=== PATIENT | male | born 1960 | race Hispanic/Latino ===

== ENCOUNTER 2021-06-02 16:55 | Emergency (ER) | payer OTHER, MEDICARE ==
[~2021-06-02] VITALS: Ht 165.1 cm; Wt 92.5 kg
[2021-06-02 17:09] VITALS: BP 155/91
[2021-06-02 17:33] LABS: BASOPHILS % (AUTO) 0.4 % (0.0-5.0); HEMATOCRIT 42.5 % (42-54); LYMPHOCYTES % (AUTO) 26.6 % (21.0-51.0); MEAN CORPUSCULAR HGB CONC 34.8 g/dL (32.0-36.0); MONOCYTES % (AUTO) 6.3 % (3.0-13.0); NEUTROPHILS % (AUTO) 65.3 % (40.0-77.0); PLATELET COUNT (AUTO) 303 K/uL (130-400); RED BLOOD CELL COUNT(AUTO) 4.94 MIL/uL (4.50-6.20); WHITE BLOOD COUNT (AUTO) 14.3 K/uL (4.8-10.8)
[2021-06-02] MEDS ORDERED: ONDANSETRON 4MG INJ ONE (17:33)
[2021-06-02] MEDS ORDERED: MORPHINE 4 MG SYG ONE (17:33)
[2021-06-02 17:54] LABS: BILIRUBIN,TOTAL 0.3 mg/dL (0.2-1.0); CREATININE 1.2 mg/dL (0.5-1.5); TOTAL PROTEIN, SERUM 7.8 g/dL (6.0-8.3)
[2021-06-02] MEDS ORDERED: ZOSYN 3.375GM+NS 50ML 3.38 GM in 0.9%NACL 50ML 50 ML IV SCH (18:00)
[2021-06-02] MEDS ORDERED: 0.9%NACL 50ML 50 ML IV ONE (18:30)
[2021-06-02] MEDS ORDERED: ZOSYN 3.375GM +NS 50ML IV ONE (18:30)
[2021-06-02 19:00] VITALS: BP 158/90
[2021-06-02 19:59] VITALS: BP 151/85
[2021-06-02 20:19] LABS: APPEARANCE,URINE Cloudy (CLEAR); BILIRUBIN,URINE Negative (NEGATIVE); COLOR,URINE Yellow (YELLOW); GLUCOSE, URINE (UA) Negative (NEGATIVE); KETONES,URINE 15 mg/dL (NEGATIVE); LEUKOCYTE ESTERASE ,URINE Small (NEGATIVE); NITRATE,URINE Negative (NEGATIVE); OCCULT BLOOD,URINE Large (NEGATIVE); PROTEIN,URINE POS 2+ mg/dL (NEGATIVE)
[2021-06-02 20:44] LABS: BACTERIA,URINE Rare /HPF (None Seen); WBC,URINE 0-1 /HPF (0-1); YEAST,URINE BUDDING Few /HPF (None Seen)
[2021-06-02 20:45] LABS: RBC,URINE 26-50 /HPF (0-1); SQUAMOUS EPITHELIAL CELL,UR Rare /HPF (0-2)
[2021-06-02] MEDS ORDERED: ONDA4TAB10 PO (21:17)
[2021-06-02] MEDS ORDERED: IBUP-2070 PO (21:17)
[2021-06-02] MEDS ORDERED: ACET1TAB25 PO (21:17)
[2021-06-02] MEDS ORDERED: TAMS-1 PO (21:17)
== END 2021-06-02 21:34 | disposition home or self-care (01) ==
LOC: EDH 16:55
DX: N13.2 Hydronephrosis with renal and ureteral calculous obstruction (principal); E11.9 Type 2 diabetes mellitus without complications; E78.00 Pure hypercholesterolemia, unspecified; M19.90 Unspecified osteoarthritis, unspecified site; Z79.899 Other long term (current) drug therapy
CPT/HCPCS: 36415; 71045; 74176; 80053; 81001; 82150; 83690; 85025; 87040 ×2; 93005; 96365; 96375 ×2; 99285; J2270; J2405; J2543